=== PATIENT | female | born 1955 | race African-American/Black ===

== ENCOUNTER 2017-11-20 04:46 | Emergency (ER) | payer BC, SELFPAY ==
[2017-11-20] MEDS ORDERED: HYDROcodone/Acetaminophen 5/325 mg Tablet ONE (06:01)
[2017-11-20 06:38] LABS: #Basophils 0.1 thou/uL (0.0-0.2); #Eosinphils 0.1 thou/uL (0.0-0.7); #Lymphocytes 2.9 thou/uL (1.20-3.40); #Monocytes 0.7 thou/uL (0.11-0.59); #Neutrophils 3.6 thou/uL (1.40-6.50); %Basophils 0.8 % (0.0-1.0); %Eosinophils 1.5 % (0.0-10.0); %Lymphocytes 39.4 % (21.0-51.0); %Monocytes 9.2 % (0.0-10.0); %Neutrophils 49.1 % (42.0-75.0); Hemoglobin 13.1 g/dL (12.0-16.0); Mean Corpuscular HGB CONC 33.1 g/dL (32.0-36.0); Mean Corpuscular Hemoglobin 30.8 pg (27.0-31.0); Mean Platelet Volume 7.7 fL (7.4-10.4); Platelet Count 300 thou/uL (130-400); RBC Distribution Width 11.9 % (11.5-14.5); Red Blood Cell (RBC) Count 4.26 mill/uL (4.20-5.40); White Blood Cell (WBC) Count 7.3 thou/uL (4.8-10.8)
[2017-11-20 06:43] LABS: BHCG - Serum Negative (NEGATIVE); Pregs Control Bar Appear? YES (CONTROL BAR)
[2017-11-20 06:44] LABS: Pregs Control Background? CLEAR/WHITE (CLR/WHITE)
[2017-11-20 07:02] LABS: ALT (SGPT) 14 U/L (8-55); AST (SGOT) 16 U/L (5-34); Albumin 4.1 g/dL (3.4-4.8); Alkaline Phosphatase 91 U/L (40-150); Anion Gap 12 mmol/L (10-20); BUN (Urea Nitrogen) 10 mg/dL (9.8-20.1); Bilirubin, Total 0.8 mg/dL (0.2-1.2); Calc. Creatinine Clearance 0 mL/min (70-130); Calcium 10.1 mg/dL (7.8-10.44); Carbon Dioxide 27 mmol/L (23-31); Chloride 105 mmol/L (98-107); Estimated GFR-MDRD Greater than 90; Globulin 4.1 g/dL (2.4-3.5); Glucose 154 mg/dL (80-115); Potassium 4.3 mmol/L (3.5-5.1); Protein, Total 8.2 g/dL (6.0-8.3); Sodium 140 mmol/L (136-145)
[2017-11-20] MEDS ORDERED: Ondansetron HCl/PF 4 MG/2 ML Vial ONE (07:43)
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
--- NOTE | 2017-11-20 08:26 | RAD ---
THREE VIEWS LEFT WRIST: Date: 11-20-17 Comparison: None. History: Pain. FINDINGS: No displaced fracture or dislocation. No radiopaque foreign body or subcutaneous gas. IMPRESSION: No displaced fracture or evidence of dislocation. If symptoms persist, follow up imaging in 7-10 days with dedicated scaphoid views advised. POS: [facility]
[2017-11-20] MEDS ORDERED: ISOVUE-370 76%-LOCM 1 ML ONE (12:57)
== END 2017-11-20 10:44 | disposition home or self-care (01) ==
LOC: ERS 04:46
DX: T14.8XXA Other injury of unspecified body region, initial encounter (principal); I10 Essential (primary) hypertension; E78.5 Hyperlipidemia, unspecified; E11.9 Type 2 diabetes mellitus without complications; Y04.0XXA Assault by unarmed brawl or fight, initial encounter; Z79.84 Long term (current) use of oral hypoglycemic drugs; Z79.899 Other long term (current) drug therapy
CPT/HCPCS: 36415; 70450; 70498; 71046; 80053; 84703; 85025; 96374; J2405

== ENCOUNTER 2017-11-30 18:34 | Emergency (ER) | payer BC ==
[~2017-11-30 18:34] MED LIST: ISOVUE-370 76%-LOCM 1 ML ONE
[2017-11-30 19:16] LABS: #Basophils 0.1 thou/uL (0.0-0.2); #Eosinphils 0.1 thou/uL (0.0-0.7); #Lymphocytes 3.7 thou/uL (1.20-3.40); #Monocytes 0.7 thou/uL (0.11-0.59); #Neutrophils 3.9 thou/uL (1.40-6.50); %Basophils 0.7 % (0.0-1.0); %Eosinophils 1.5 % (0.0-10.0); %Lymphocytes 43.2 % (21.0-51.0); %Monocytes 8.7 % (0.0-10.0); %Neutrophils 45.9 % (42.0-75.0); Hemoglobin 13.1 g/dL (12.0-16.0); Mean Corpuscular HGB CONC 33.8 g/dL (32.0-36.0); Mean Corpuscular Hemoglobin 31.9 pg (27.0-31.0); Mean Corpuscular Volume 94.4 fl (81.0-99.0); Mean Platelet Volume 7.8 fL (7.4-10.4); Platelet Count 327 thou/uL (130-400); RBC Distribution Width 11.9 % (11.5-14.5); Red Blood Cell (RBC) Count 4.11 mill/uL (4.20-5.40); White Blood Cell (WBC) Count 8.6 thou/uL (4.8-10.8)
[2017-11-30 19:25] LABS: INR-International Normal Ratio 1.1; PTT 26.6 SEC (22.9-36.1); Prothrombin Time 14.1 SEC (12.0-14.7)
[2017-11-30] MEDS ORDERED: Ondansetron HCl/PF 4 MG/2 ML Vial ONE (19:28)
[2017-11-30] MEDS ORDERED: Fentanyl 100 MCG/2 ML VIAL ONE (19:28)
[2017-11-30 19:29] LABS: ALT (SGPT) 20 U/L (8-55); AST (SGOT) 22 U/L (5-34); Albumin 4.3 g/dL (3.4-4.8); Alkaline Phosphatase 90 U/L (40-150); Anion Gap 13 mmol/L (10-20); BUN (Urea Nitrogen) 10 mg/dL (9.8-20.1); Calc. Creatinine Clearance 0 mL/min (70-130); Calcium 10.2 mg/dL (7.8-10.44); Carbon Dioxide 25 mmol/L (23-31); Chloride 105 mmol/L (98-107); Estimated GFR-MDRD 85; Globulin 3.4 g/dL (2.4-3.5); Glucose 146 mg/dL (80-115); Lipase 20 U/L (8-78); Protein, Total 7.7 g/dL (6.0-8.3); Sodium 139 mmol/L (136-145)
[2017-11-30 19:38] LABS: CKMB 3.7 ng/mL (0-6.6); Troponin I Less than 0.010 ng/mL (< 0.028)
[2017-11-30 20:10] LABS: Bilirubin Negative (Negative); Blood, Urine Negative (Negative); Clarity CLOUDY (Clear); Glucose, Urine (Dipstick) Negative (Negative); Leukocyte Moderate (Negative); Nitrite Negative (Negative); Protein, Urine (Dipstick) Negative (Neg-Trace); Specific Gravity, Urine 1.028 (1.002-1.036); pH, Urine 5.5 (5.0-9.0)
[2017-11-30 20:12] LABS: Hyaline Casts/LPF 4-6 HYALINE CAST LPF (0-3 Hyaline); Pathc Cast-AUWi Flag 0.13 (0-2.49); WBC/HPF 21-50 HPF (0-3)
[2017-11-30 20:22] LABS: Bacteria/HPF 1+ HPF (None Seen); Crystals/HPF 1+ CA OXALATE HPF (Negative); RBC/HPF 0-3 HPF (0-3)
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
--- NOTE | 2017-11-30 21:04 | RAD ---
PORTABLE CHEST: History: Chest pain. Comparison: None. FINDINGS: Heart size and mediastinum are within normal limits. The lungs are clear of infiltrates. IMPRESSION: No active intrathoracic disease. POS: [facility]
== END 2017-11-30 21:29 | disposition home or self-care (01) ==
LOC: ERS 18:34
DX: R10.13 Epigastric pain (principal); I10 Essential (primary) hypertension; E78.5 Hyperlipidemia, unspecified; E11.9 Type 2 diabetes mellitus without complications; F41.9 Anxiety disorder, unspecified
CPT/HCPCS: 71045; 74177; 80053; 81003; 81015; 82150; 82274; 82550; 82553; 83605; 83630; 83690; 84484; 85025; 85610; 85730; 87045; 87046; 87086; 87324; 87328; 87329; 87449; 87899; 93005; 96361; 96372; 96374; 96375; J2405; J3010

== ENCOUNTER 2018-06-13 19:59 | Emergency (ER) | payer BC | END 2018-06-13 20:40 | disposition home or self-care (01) | LOC: ERS 19:59 | DX: I88.9 Nonspecific lymphadenitis, unspecified (principal); E78.5 Hyperlipidemia, unspecified; I10 Essential (primary) hypertension; E11.9 Type 2 diabetes mellitus without complications; Z79.899 Other long term (current) drug therapy; Z79.84 Long term (current) use of oral hypoglycemic drugs | CPT/HCPCS: 99282 ==

== ENCOUNTER 2018-06-24 14:17 | Observation (INO) | payer BC ==
[2018-06-24 14:49] LABS: Hemoglobin 14.3 g/dL (12.0-16.0); Mean Corpuscular Hemoglobin 31.5 pg (27.0-31.0); Mean Corpuscular Volume 92.5 fL (78.0-98.0); Mean Platelet Volume 8.5 fL (7.4-10.4); Platelet Count 342 thou/uL (130-400); RBC Distribution Width 11.9 % (11.5-14.5); Red Blood Cell (RBC) Count 4.55 mill/uL (4.20-5.40); White Blood Cell (WBC) Count 7.2 thou/uL (4.8-10.8)
--- NOTE | 2018-06-24 14:55 | RAD ---
SINGLE VIEW OF THE CHEST: Comparison: 11-30-17 History: Light headedness and heart racing. FINDINGS: Single view of the chest shows a normal sized cardiomediastinal silhouette. There is no evidence of c onsolidation, mass, or pleural effusion. The bones are unremarkable. IMPRESSION: No evidence of acute cardiopulmonary disease. POS: [facility]
[2018-06-24 15:04] LABS: ALT (SGPT) 11 U/L (8-55); AST (SGOT) 13 U/L (5-34); Albumin 4.6 g/dL (3.4-4.8); Alkaline Phosphatase 98 U/L (40-150); Anion Gap 11 mmol/L (10-20); BUN (Urea Nitrogen) 12 mg/dL (9.8-20.1); Bilirubin, Total 0.6 mg/dL (0.2-1.2); CK (CPK) 96 U/L (29-168); Calc. Creatinine Clearance 0 mL/min (70-130); Calcium 10.5 mg/dL (7.8-10.44); Carbon Dioxide 27 mmol/L (23-31); Chloride 104 mmol/L (98-107); Estimated GFR-MDRD 71; Globulin 4.3 g/dL (2.4-3.5); Glucose 122 mg/dL (80-115); Lipase 18 U/L (8-78); Potassium 3.6 mmol/L (3.5-5.1); Protein, Total 8.9 g/dL (6.0-8.3); Sodium 138 mmol/L (136-145)
[2018-06-24 15:08] LABS: CKMB 0.9 ng/mL (0-6.6); Troponin I Less than 0.010 ng/mL (< 0.028)
[2018-06-24 15:10] LABS: Eosinophils 2 % (0-10); Lymphocytes 56 % (21-51); MDiff Complete? YES; Monocytes 9 % (0-10); Neutrophil 26 % (42-75); PLT Morphology Comment Appears Adequate; RBC Morphology Normal; Reactive Lymphocytes 7 % (0-10)
[2018-06-24] MEDS ORDERED: Acetaminophen 325 MG TAB PO PRN (18:51)
[2018-06-24] MEDS ORDERED: Acetaminophen 650 MG Suppository PR PRN (18:51)
[2018-06-24] MEDS ORDERED: Nitroglycerin 0.4 MG TAB (25 Tab Bottle) PO PRN (18:51)
[2018-06-24] MEDS ORDERED: Dextrose 5% in Water 1,000 ML IV PRN (18:54)
[2018-06-24] MEDS ORDERED: HumaLOG 300 UNITS/3 ML VIAL SC PRN (18:54)
[2018-06-24] MEDS ORDERED: Dextrose 50% Abboject 50 ML SYRINGE SLOW IVP PRN (18:54)
--- NOTE | 2018-06-24 19:17 | HP ---
PRIMARY CARE PROVIDER: Eric Theodore MD CHIEF COMPLAINT: Palpitations and chest pressure. HISTORY OF PRESENT ILLNESS: Ms. Rowley is a pleasant 62-year-old lady, who was seen at [facility] on 06/24/2018. She reports that around 1:30 p.m. today, she was started having palpitations. The palpitations were accompanied by retrosternal chest pressure like sensation, 8/10, also accompanied by pressure in the neck. She reports feeling lightheaded. The palpitations lasted 5-10 minutes. She also reports naus ea. She denies any previous episodes of recent palpitations, but also says that she has had palpitat ions in the past, but not as severe. She denies any fevers or chills. REVIEW OF SYSTEMS: All other systems reviewed and found to be negative. PAST MEDICAL HISTORY: Hypertension, dyslipidemia, and diabetes mellitus, type 2. PAST SURGICAL HISTORY: Tubal ligation. PSYCHIATRIC HISTORY: Anxiety. SOCIAL HISTORY: The patient denies tobacco use, alcohol use, or recreational drug use. ALLERGIES: NAPROXEN and TRAMADOL. CURRENT MEDICATIONS: Metformin 500 mg 2 times a day, lisinopril 2.5 mg daily, and atorvastatin 10 mg daily. FAMILY HISTORY: Significant for atrial fibrillation in her mother and enlarged heart in her brother. PHYSICAL EXAMINATION: GENERAL: Ms. Rowley is awake and alert, not in acute distress. VITAL SIGNS: Blood pressure is 132/77, pulse 74, respiratory rate 17, and oxygen saturation 100% on room air. She is afebrile. EYES: No scleral icterus. No conjunctival pallor. ENT: Moist mucosal membranes, no oropharyngeal erythema or exudates. NECK: Supple, nontender. Trachea is midline. RESPIRATORY: Accessory muscles of breathing are not active. Chest wall movements are symmetric bila terally. LUNGS: Clear to auscultation without wheeze, rhonchi, or crepitations. CARDIOVASCULAR: S1 and S2 are heard, regular. Peripheral pulses palpable. No carotid bruits, no pe ricardial rub. ABDOMEN: Soft, nontender, bowel sounds are heard, no hepatomegaly, no splenomegaly. NEUROLOGIC: Cranial nerves II-XII intact. Deep tendon reflexes 2+. MUSCULOSKELETAL: Power is 5/5 in all 4 extremities. SKIN: No rashes or subcutaneous nodules. LYMPHATIC: No cervical lymphadenopathy. PSYCHIATRIC: Normal mood, normal affect, patient is oriented to person, place, and time. DATABASE: Ms. Rowley' labs and investigations were reviewed. I reviewed her electrocardiogram, wh ich shows normal sinus rhythm, no ST changes to suggest an acute coronary syndrome. I also reviewed her chest x-ray, which does not show any pulmonary infiltrates. She has a normal white count, but ly mphocytosis with 56% lymphocytes, and 26% neutrophils, normal hemoglobin, normal platelet count, mild ly elevated calcium of 10.5, elevated serum total protein of 8.9, elevated globulin of 4.3, normal al bumin, normal troponin I, normal creatinine, and normal electrolytes. ASSESSMENT AND PLAN: Ms. Rowley is a pleasant 62-year-old lady, who was seen at [facility] on 06/24/2018. Her problem list includes: 1. Chest pain: The etiology is unclear. Mr. Rowley will be admitted to the hospital for further management including telemetry monitoring, rechecking cardiac enzymes, and stress test. Further catina gement depending on outcome of this test. We will also order D-dimer to rule out pulmonary embolism. 2. Hypercalcemia, mild, we will recheck calcium level. 3. Lymphocytosis: Etiology is unclear. Will recheck CBC in the morning. 4. Diabetes mellitus, type 2: Start Accu-Cheks, insulin sliding scale. 5. Hypertension: Monitor vital signs, titrate antihypertensives as needed. 6. Elevated total protein and globulin: If these continue to be elevated on repeat check, the patie nt may need further workup to rule out entities such as multiple myeloma, especially given her elevat ed calcium level. This can be done as outpatient. 7. Palpitations: The patient will be monitored on telemetry to rule out any arrhythmias. Many thanks for allowing me to participate in your patient's care. Please feel free to contact me wi th any questions or concerns. LEVEL OF RISK: High. LEVEL OF COMPLEXITY: High.
[2018-06-24 19:55] LABS: Troponin I Less than 0.010 ng/mL (< 0.028)
[2018-06-24 20:55] VITALS: BMI 23.6
[2018-06-24 21:20] LABS: Troponin I Less than 0.010 ng/mL (< 0.028)
[2018-06-25 05:04] LABS: ALT (SGPT) 9 U/L (8-55); AST (SGOT) 10 U/L (5-34); Albumin 3.7 g/dL (3.4-4.8); Alkaline Phosphatase 80 U/L (40-150); Anion Gap 10 mmol/L (10-20); BUN (Urea Nitrogen) 12 mg/dL (9.8-20.1); Bilirubin, Total 0.9 mg/dL (0.2-1.2); Calc. Creatinine Clearance 67 mL/min (70-130); Calcium 9.8 mg/dL (7.8-10.44); Carbon Dioxide 28 mmol/L (23-31); Chloride 105 mmol/L (98-107); Estimated GFR-MDRD 72; Globulin 3.5 g/dL (2.4-3.5); Glucose 180 mg/dL (80-115); Potassium 4.1 mmol/L (3.5-5.1); Protein, Total 7.2 g/dL (6.0-8.3); Sodium 139 mmol/L (136-145)
[2018-06-25 05:45] LABS: #Eosinphils 0.3 thou/uL (0.0-0.7); #Lymphocytes 3.3 thou/uL (1.20-3.40); #Monocytes 0.7 thou/uL (0.11-0.59); #Neutrophils 2.6 thou/uL (1.40-6.50); %Basophils 0.7 % (0.0-1.0); %Eosinophils 4.3 % (0.0-10.0); %Lymphocytes 47.7 % (21.0-51.0); %Monocytes 10.2 % (0.0-10.0); %Neutrophils 37.1 % (42.0-75.0); Band 2 % (5-11); Eosinophils 4 % (0-10); Hemoglobin 13.1 g/dL (12.0-16.0); Lymphocytes 54 % (21-51); MDiff Complete? YES; Mean Corpuscular HGB CONC 33.4 g/dL (32.0-36.0); Mean Corpuscular Hemoglobin 30.6 pg (27.0-31.0); Mean Corpuscular Volume 91.8 fL (78.0-98.0); Mean Platelet Volume 8.2 fL (7.4-10.4); Monocytes 10 % (0-10); Neutrophil 30 % (42-75); PLT Morphology Comment Appears Adequate; Platelet Count 276 thou/uL (130-400); RBC Distribution Width 11.7 % (11.5-14.5); Red Blood Cell (RBC) Count 4.26 mill/uL (4.20-5.40); White Blood Cell (WBC) Count 6.9 thou/uL (4.8-10.8)
[2018-06-25] MEDS ORDERED: Enoxaparin Sodium 40 MG/0.4 ML SYRINGE SC SCH (09:00)
[2018-06-25 09:32] VITALS: BP 137/74; TEMP 98.2
--- NOTE | 2018-06-25 12:02 | PDOC.PN ---
- Subjective Encounter Start Date: 06/25/18 Encounter Start Time: 09:30 Subjective: no chest pain or palpitations -: feels better - Objective MAR Reviewed: Yes Vital Signs & Weight: Vital Signs (12 hours) Temp Pulse Resp BP BP Pulse Ox 06/25/18 08:27 96 06/25/18 08:00 98.2 F 68 18 137/74 06/25/18 04:04 98.4 F 70 20 111/69 98 Weight Weight 150 lb 9.6 oz I&O: 06/24/18 06/25/18 06/26/18 06:59 06:59 06:59 Intake Total 485 Output Total 200 Balance 285 Result Diagrams: 06/25/18 04:25 06/25/18 04:25 Phys Exam - Physical Examination HEENT: PERRLA, moist MMs Neck: no JVD, supple Respiratory: no wheezing, no rales Cardiovascular: RRR, no significant murmur Gastrointestinal: soft, non-tender, positive bowel sounds Musculoskeletal: no edema, pulses present Neurological: non-focal, moves all 4 limbs Psychiatric: normal affect, A&O x 3 Dx/Plan (1) Chest pain Code(s): R07.9 - CHEST PAIN, UNSPECIFIED Status: Acute (2) Palpitations Code(s): R00.2 - PALPITATIONS Status: Acute Comment: no arrhythmias on tele monitor (3) DM type 2 (diabetes mellitus, type 2) Status: Chronic Qualifiers: Diabetes mellitus emergency medical service manager insulin use: without detention use Diabetes mellitus complication status: with unspecified complications Qualified Code(s) : E11.8 - Type 2 diabetes mellitus with unspecified complications (4) HTN (hypertension) Code(s): I10 - ESSENTIAL (PRIMARY) HYPERTENSION Status: Chronic Qualifiers: Hypertension type: essential hypertension Qualified Code(s): I10 - Essential (primary) hypertension (5) Dyslipidemia Code(s): E78.5 - HYPERLIPIDEMIA, UNSPECIFIED Status: Chronic - Plan hemostable -: await stress test results, may dc home if -ve * . Review of Systems - Medications/Allergies Allergies/Adverse Reactions: Allergies Allergy/AdvReac Type Severity Reaction Status Date / Time naproxen Allergy Verified 06/24/18 18:50 tramadol Allergy Verified 06/24/18 18:50 Medications: Current Medications Acetaminophen (Tylenol) 650 mg PO Q4H PRN PRN Reason: Headache/Fever or Pain Last Admin: 06/24/18 21:12 Dose: 650 mg Acetaminophen (Tylenol) 650 mg CO Q4H PRN PRN Reason: Headache/Fever or Pain Dextrose/Water (Dextrose 50%) 25 gm SLOW IVP PRN PRN PRN Reason: Hypoglycemia Enoxaparin Sodium (Lovenox) 40 mg SC 0900 NILE Glucagon (Glucagon) 1 mg IM PRN PRN PRN Reason: Hypoglycemia Dextrose/Water (D5w) 1,000 mls @ 0 mls/hr IV .Q0M PRN PRN Reason: Hypoglycemia Insulin Human Lispro (Humalog) 0 units SC .MILD SLIDING SCALE PRN PRN Reason: Mild Correctional Scale Nitroglycerin (Nitrostat) 0.4 mg PO Q5MIN PRN PRN Reason: Chest Pain
[2018-06-25] MEDS ORDERED: ADENOSINE 60 MG/20 ML VIAL ONE (13:49)
--- NOTE | 2018-06-25 16:09 | NM ---
EXAM: NUCLEAR MEDICINE CARDIAC STRESS WITH EF AND WALL MOTION: 06/25/18 HISTORY: Chest pain. COMPARISON: None. TECHNIQUE: 10.7 millicuries of technetium 99m Sestamibi for rest imaging and 29 millicuries of technetium 99m Se stamibi for stress imaging. Cardiac gating is performed. FINDINGS: Homogeneous distribution of the radiotracer. Decreased radiotracer localization in the septum is felt to be artifactual. No reversibility. End diastolic volume is 58 mL. End systolic volume is 11 mL. TID = 1.2. CARDIAC GATING: Normal motion and thickening. 81% ejection fraction. IMPRESSION: 1. 81% ejection fraction. 2. No evidence of reversibility. 3. TID at the upper limits of normal. POS: [facility]
--- NOTE | 2018-06-26 01:31 | DIS ---
DATE OF ADMISSION: 06/24/2018 DATE OF DISCHARGE: 06/25/2018 DISCHARGE DISPOSITION: To home. PRIMARY DISCHARGE DIAGNOSIS: Chest pain with palpitations, resolved. SECONDARY DISCHARGE DIAGNOSES: Diabetes mellitus type 2, hypertension, dyslipidemia. PROCEDURES DONE DURING HOSPITALIZATION: Nuclear stress test done showed ejection fraction of 81%, no reversible ischemia was seen. TID was 1.2. End-diastolic volume was 58. Chest x-ray done showed n o acute cardiopulmonary abnormalities. H&H 13 and 39, platelet count is 276. Troponin x3 is negativ e. Serum calcium was 9.8, albumin was 3.7. DISCHARGE MEDICATIONS: Lipitor 40 mg p.o. daily, Neurontin 100 mg p.o. 3 times daily, lisinopril 2.5 mg p.o. daily, metformin 1000 mg p.o. q.a.m. and 500 mg p.o. at bedtime. ALLERGIES: NAPROSYN and TRAMADOL. DISCHARGE PLAN: The patient to follow up with primary care physician in 1 week. BRIEF COURSE DURING HOSPITALIZATION: The patient initially came in with complaints of palpitations a nd chest pressure. She was placed under observation on telemetry. She has had 3 sets of cardiac enz ymes, which are negative. Nuclear stress test done showed no reversible ischemia. Tele monitor has not revealed any arrhythmias. The patient initially had elevated calcium of 10.5 with albumin of 4.6 on admission. After gentle hydration, the patient's calcium was 9.8. Her albumin is 3.7, globulin is 3.5. She has remained hemodynamically stable and has been advised to follow up with her primary c are physician in 1 week. She probably needs close monitoring of her calcium levels and possible furt her workup as outpatient if it continues to increase. Please see a [id number] documentation on [employer] for the day of discharge.
--- NOTE | 2018-06-27 21:46 | EKG ---
Test Reason : PALPITATIONS Blood Pressure : / mmHG Vent. Rate : 089 BPM Atrial Rate : 089 BPM P-R Int : 166 ms QRS Dur : 090 ms QT Int : 372 ms P-R-T Axes : 080 -16 033 degrees QTc Int : 452 ms Normal sinus rhythm Possible Left atrial enlargement Possible Anteroseptal infarct , age undetermined Abnormal ECG Confirmed by SHELBY Long, LUIS A ([id number]), graphic editor ANDRÉS HER ([id number]) on 06/27/2018 9:46:31 PM Referred By: Confirmed By:LUIS A RYAN M.D.
== END 2018-06-25 18:24 | disposition home or self-care (01) ==
LOC: ERS 14:17 → 2SW 18:54
PROVIDERS: ADMIT Internal Medicine; ATTEND Internal Medicine
DX: R07.9 Chest pain, unspecified (principal); E83.52 Hypercalcemia; D72.820 Lymphocytosis (symptomatic); E11.9 Type 2 diabetes mellitus without complications; I10 Essential (primary) hypertension; R00.2 Palpitations; Z79.84 Long term (current) use of oral hypoglycemic drugs; Z79.899 Other long term (current) drug therapy; Z88.5 Allergy status to narcotic agent
CPT/HCPCS: 36415; 71045; 78452; 80053; 82550; 82553; 83690; 84484; 85025; 93005; 93017; 94760; A9500; G0378; J0153

== ENCOUNTER 2019-03-12 19:57 | Observation (INO) | payer BC ==
[2019-03-12] MEDS ORDERED: Metoclopramide HCl 10 MG/2 ML VIAL ONE (20:45)
[2019-03-12] MEDS ORDERED: diphenhydrAMINE 50 MG/ML VIAL ONE (20:45)
[2019-03-12 20:47] LABS: #Basophils 0.1 thou/uL (0.0-0.2); #Eosinphils 0.3 thou/uL (0.0-0.7); #Monocytes 0.6 thou/uL (0.11-0.59); #Neutrophils 3.7 thou/uL (1.40-6.50); %Basophils 1.1 % (0.0-1.0); %Eosinophils 3.1 % (0.0-10.0); %Lymphocytes 46.2 % (21.0-51.0); %Monocytes 6.5 % (0.0-10.0); %Neutrophils 43.1 % (42.0-75.0); Hemoglobin 13.4 g/dL (12.0-16.0); Mean Corpuscular HGB CONC 33.8 g/dL (32.0-36.0); Mean Corpuscular Hemoglobin 30.8 pg (27.0-31.0); Mean Corpuscular Volume 91.2 fL (78.0-98.0); Mean Platelet Volume 8.7 fL (7.4-10.4); Platelet Count 287 thou/uL (130-400); RBC Distribution Width 11.6 % (11.5-14.5); Red Blood Cell (RBC) Count 4.34 mill/uL (4.20-5.40); White Blood Cell (WBC) Count 8.7 thou/uL (4.8-10.8)
--- NOTE | 2019-03-12 20:51 | RAD ---
AP view chest. HISTORY: Left-sided rib pain. AP view chest obtained. The lungs are well aerated. No evidence of active intrathoracic disease seen. No evidence of effusions, pneumonia or pneumothorax seen. IMPRESSION: unremarkable AP view chest.
--- NOTE | 2019-03-12 20:57 | CT ---
CT brain. HISTORY: 63-year-old with history of headache. Noncontrast enhanced CT images of brain obtained. The brain is unremarkable. No evidence of intracranial masses, hemorrhages strokes or contusion seen. IMPRESSION: Unremarkable CT brain.
[2019-03-12 21:09] LABS: ALT (SGPT) 9 U/L (8-55); AST (SGOT) 10 U/L (5-34); Albumin 4.2 g/dL (3.4-4.8); Alkaline Phosphatase 101 U/L (40-150); Anion Gap 15 mmol/L (10-20); BUN (Urea Nitrogen) 11 mg/dL (9.8-20.1); Bilirubin, Total 0.6 mg/dL (0.2-1.2); CK (CPK) 79 U/L (29-168); Calc. Creatinine Clearance 0 mL/min (70-130); Calcium 10.2 mg/dL (7.8-10.44); Carbon Dioxide 26 mmol/L (23-31); Chloride 104 mmol/L (98-107); Estimated GFR-MDRD 71; Globulin 3.6 g/dL (2.4-3.5); Glucose 168 mg/dL (80-115); Potassium 3.6 mmol/L (3.5-5.1); Protein, Total 7.8 g/dL (6.0-8.3); Sodium 141 mmol/L (136-145)
[2019-03-12 21:29] LABS: Bilirubin Negative (Negative); Blood, Urine Negative (Negative); Clarity CLEAR (Clear); Glucose, Urine (Dipstick) Negative (Negative); Leukocyte Trace (Negative); Nitrite Negative (Negative); Protein, Urine (Dipstick) Negative (Neg-Trace); Specific Gravity, Urine 1.021 (1.002-1.036); pH, Urine 5.5 (5.0-9.0)
[2019-03-12 21:31] LABS: Bacteria/HPF None Seen HPF (None Seen); Hyaline Casts/LPF 0-3 HYALINE CAST LPF (0-3 Hyaline); Pathc Cast-AUWi Flag 0.67 (0-2.49); Squamous Epithelial 0-3 HPF (0-3); WBC/HPF 0-3 HPF (0-3)
[2019-03-12] MEDS ORDERED: Magnesium 2 GM/50 ML BAG (IN WATER) ONE (21:50)
[2019-03-12] MEDS ORDERED: Aspirin Chewable 81 MG TAB ONE (21:50)
[2019-03-12] MEDS ORDERED: Acetaminophen 500 MG TAB ONE (21:50)
[2019-03-12] MEDS ORDERED: valACYclovir 500 MG TAB PO SCH (22:00)
[2019-03-12] MEDS ORDERED: Ondansetron PF 4 MG/2 ML Vial IVP PRN (22:45)
[2019-03-12] MEDS ORDERED: Ondansetron ODT 4 MG TAB SL PRN (22:45)
[2019-03-12 22:47] VITALS: BMI 24.7
[2019-03-12] MEDS: Sodium Chloride 0.9% 1,000 ML IV SCH (23:27)
[2019-03-12] MEDS ORDERED: Acetaminophen 325 MG TAB PO PRN (23:38)
[2019-03-13 00:21] LABS: Troponin I Less than 0.010 ng/mL (< 0.028)
[2019-03-13] MEDS ORDERED: Dextrose 5% in Water 1,000 ML IV PRN (02:46)
[2019-03-13] MEDS ORDERED: Dextrose 50% Abboject 50 ML SYRINGE SLOW IVP PRN (02:46)
[2019-03-13] MEDS ORDERED: HumaLOG 300 UNITS/3 ML VIAL SC PRN (02:46)
[2019-03-13 03:20] LABS: Troponin I Less than 0.010 ng/mL (< 0.028)
--- NOTE | 2019-03-13 03:42 | HP ---
PRIMARY CARE DOCTOR: Antolin Theodore MD. CODE STATUS: Full code. TIME OF EVALUATION: 10:10 p.m. CHIEF COMPLAINT: Headache and chest pain. HISTORY OF PRESENT ILLNESS: A 63-year-old female patient, past medical history of hypertension, hyperlipidemia, diabetes, came to the hospital after having chest pain that was in the left side of the chest, on and off, [id number]. No clear triggers. No alleviating factors. It was associated with headache, symptoms started suddenly. REVIEW OF SYSTEMS: CONSTITUTIONAL: No fever, chills, or generalized weakness. RESPIRATORY: No cough, sputum production, or shortness of breath. CARDIOVASCULAR: The patient has chest pain. No palpitation. GASTROINTESTINAL: No nausea. No vomiting diarrhea or abdominal pain. DIRECTOR VIDEO: No dizziness. The patient has headache, feeling lightheaded. GENITOURINARY: No burning on urination. EXTREMITIES: No leg swelling. All other systems were reviewed and negative except for the findings mentioned above. PAST MEDICAL HISTORY: Positive for the findings mentioned in the HPI. PAST SURGICAL HISTORY: The patient has tubal ligation. PSYCHIATRIC HISTORY: Includes anxiety. SOCIAL HISTORY: No alcohol, no drugs, no smoking history. Lives at home with family. FAMILY HISTORY: Reviewed and no contributory to current presentation. KNOWN ALLERGIES: Naproxen and tramadol. REPORTED MEDICATIONS: 1. Metformin. 2. Lisinopril. 3. Atorvastatin. PHYSICAL EXAMINATION: VITAL SIGNS: On presentation, blood pressure 155/90, with heart rate 88, respiratory rate was 16, temperature 98.2, oxygen saturation 99% on room air. GENERAL APPEARANCE: The patient is alert, oriented, not in acute distress. HEENT: Eyes; normal conjunctivae. Moist oral mucosa. Anicteric. No JVD. RESPIRATORY: Bilateral air entry. No rales. No wheezes. Symmetric expansion. CARDIOVASCULAR: Normal rate, regular rhythm. No murmurs. No gallop. No edema. ABDOMEN: Soft. Normal bowel sounds. MUSCULOSKELETAL: Baseline range of motion and strength. SKIN: Warm and intact. No pallor. No rash. No redness except for the one little spot in the left lower chest that might be a pustular disease, small one. Peripheral pulses are present. Capillary refill seems to be intact. NEUROLOGIC: No evidence of any new focal weakness. Cranial nerves seems to be intact. PSYCHIATRIC: The patient is in good mood. No anxiety. Optimal judgment. DIAGNOSTIC STUDIES: 1. EKG was reviewed. The patient has sinus rhythm with frequent PVCs at the rate of 84, MN 182, QRS 88, QT corrected 458. 2. Chest x-ray was reviewed. The patient had a negative chest x-ray. 3. CT head was reviewed, the patient had negative CT. LABORATORY DATA: Reviewed the patient has a white count of 8.7, hemoglobin 13.4 , MCV 91.2, platelet count 287. D-dimer 0.29. Chemistry: Sodium 141, potassium 3.6, chloride 104, carbon dioxide 26, anion gap 15, BUN 11, creatinine 0.96, GFR 71, glucose 168, lactic acid 1.4. LFTs were negative. Urine was done, which was negative. ASSESSMENT AND PLAN: The patient will be placed in the hospital with the following medical problems: 1. Chest pain. Rule out acute coronary syndrome. The patient has significant risk factors including diabetes, hyperlipidemia. We will trend troponins, we will monitor on tele. If the workup is negative, we will go for a stress test in the morning. This was discussed with the patient. The patient is agreeable to take the test. 2. Uncontrolled diabetes, blood sugar of 168. We will place the patient on sliding scale for optimal control. 3. Hyperlipidemia. Low-cholesterol diet is advised. Reconcile home medications. 4. Uncontrolled blood pressure. The patient presented with systolic blood pressure as high as 160. Reconcile home medications. We will adjust treatment as needed. 5. Deep venous thrombosis prophylaxis. Job ID: [id number] MTDD
[2019-03-13 05:53] LABS: #Basophils 0.1 thou/uL (0.0-0.2); #Eosinphils 0.3 thou/uL (0.0-0.7); #Lymphocytes 3.3 thou/uL (1.20-3.40); #Monocytes 0.6 thou/uL (0.11-0.59); #Neutrophils 2.6 thou/uL (1.40-6.50); %Basophils 1.3 % (0.0-1.0); %Eosinophils 3.9 % (0.0-10.0); %Lymphocytes 48.2 % (21.0-51.0); %Monocytes 8.3 % (0.0-10.0); %Neutrophils 38.3 % (42.0-75.0); Hemoglobin 11.4 g/dL (12.0-16.0); Mean Corpuscular HGB CONC 34.5 g/dL (32.0-36.0); Mean Corpuscular Hemoglobin 31.4 pg (27.0-31.0); Mean Corpuscular Volume 91.1 fL (78.0-98.0); Mean Platelet Volume 8.9 fL (7.4-10.4); Platelet Count 247 thou/uL (130-400); RBC Distribution Width 11.7 % (11.5-14.5); Red Blood Cell (RBC) Count 3.63 mill/uL (4.20-5.40); White Blood Cell (WBC) Count 6.8 thou/uL (4.8-10.8)
[2019-03-13 06:15] LABS: Anion Gap 12 mmol/L (10-20); BUN (Urea Nitrogen) 11 mg/dL (9.8-20.1); Calc. Creatinine Clearance 78 mL/min (70-130); Calcium 8.7 mg/dL (7.8-10.44); Carbon Dioxide 22 mmol/L (23-31); Chloride 110 mmol/L (98-107); Estimated GFR-MDRD 82; Glucose 199 mg/dL (80-115); Potassium 3.7 mmol/L (3.5-5.1); Sodium 140 mmol/L (136-145)
[2019-03-13] MEDS ORDERED: Aspirin 325 MG TAB PO SCH (08:00)
[2019-03-13 08:01] VITALS: TEMP 97.6
[2019-03-13] MEDS ORDERED: Gabapentin 100 MG CAP PO SCH (09:00)
[2019-03-13] MEDS ORDERED: Atorvastatin Calcium 40 MG TAB PO SCH (09:00)
[2019-03-13] MEDS ORDERED: Lisinopril 2.5 MG TAB PO SCH (09:00)
[2019-03-13] MEDS ORDERED: valACYclovir 500 MG TAB PO SCH (09:00)
[2019-03-13] MEDS ORDERED: Enoxaparin Sodium 40 MG/0.4 ML SYRINGE SC SCH (09:00)
--- NOTE | 2019-03-13 11:31 | PDOC.EVN ---
Event Note - Event Note Event Note: DC SUMMARY #[id number]
[2019-03-13 12:18] VITALS: BP 132/76
[2019-03-13] MEDS: Sodium Chloride 0.9% 1,000 ML IV SCH (13:32)
[2019-03-13] MEDS ORDERED: metFORMIN 500 MG TAB PO SCH (21:00)
--- NOTE | 2019-03-13 22:45 | DIS ---
DATE OF ADMISSION: 03/12/2019 DATE OF DISCHARGE: 03/13/2019 ADMITTING DIAGNOSES: Chest pain, coronary artery disease, diabetes mellitus, and hypertension. DISCHARGE DIAGNOSES: Chest pain, resolved; coronary artery disease, stable; diabetes mellitus, stable; hypertension. HOSPITAL COURSE: This is a 63-year-old female admitted to Internal Medicine Team complaining of chest pain. The patient was admitted to Internal Medicine Team observation floor, had troponins done over the course of 16 hours, all of which were negative. The patient had a recent nuclear medicine stress test done as well back in June of 2018, which was normal. The patient at the point in time of discharge was stable. Denied any nausea, vomiting, diarrhea, constipation, chest pain, fevers, chills or shortness of breath. The patient was advised to follow up with her PCP within 1 week for further management and care. Case and plan discussed with patient at length. She understood and agreed to this plan. DISPOSITION: Home. FOLLOWUP: PCP within 1 to 2 weeks. MEDICATIONS: See MAR. ACTIVITY: As tolerated with assistance as needed. DIET: Low-fat, low-calorie, high-fiber diet. CONDITION: Stable. PROGNOSIS: Good. Once again, case and plan discussed with the patient at length. She understood and agreed with this plan. Job ID: [id number]
== END 2019-03-13 13:59 | disposition home or self-care (01) ==
LOC: ERS 19:57 → 2SW 22:34
PROVIDERS: ADMIT Hospitalist; ATTEND Hospitalist
DX: R07.9 Chest pain, unspecified (principal); I25.10 Atherosclerotic heart disease of native coronary artery without angina pectoris; E11.9 Type 2 diabetes mellitus without complications; E78.5 Hyperlipidemia, unspecified; F41.9 Anxiety disorder, unspecified; I10 Essential (primary) hypertension; Z79.84 Long term (current) use of oral hypoglycemic drugs; Z79.899 Other long term (current) drug therapy; Z88.5 Allergy status to narcotic agent; Z88.6 Allergy status to analgesic agent
CPT/HCPCS: 36415; 36416; 70450; 71045; 80048; 80053; 81003; 81015; 82550; 83605; 84484; 85025; 85379; 93005; 94760; 96365; 96367; 96372; 96375; G0378; J1200; J1650; J2765; J3475

== ENCOUNTER 2019-03-18 14:33 | Emergency (ER) | payer BC ==
[2019-03-18] MEDS ORDERED: Lidocaine 1% w/Epinephrine 1:100K 20 ML VIAL ONE (15:33)
== END 2019-03-18 15:53 | disposition home or self-care (01) ==
LOC: ERS 14:33
DX: N61.1 Abscess of the breast and nipple (principal); I10 Essential (primary) hypertension; E11.9 Type 2 diabetes mellitus without complications; F41.9 Anxiety disorder, unspecified; E78.5 Hyperlipidemia, unspecified
CPT/HCPCS: 10060; J2001

== ENCOUNTER 2019-07-09 13:47 | Emergency (ER) | payer BC ==
[2019-07-09 15:10] LABS: #Eosinphils 0.1 thou/uL (0.0-0.7); #Lymphocytes 2.2 thou/uL (1.20-3.40); #Monocytes 0.6 thou/uL (0.11-0.59); #Neutrophils 5.4 thou/uL (1.40-6.50); %Basophils 0.2 % (0.0-1.0); %Eosinophils 0.9 % (0.0-10.0); %Lymphocytes 26.6 % (21.0-51.0); %Monocytes 7.6 % (0.0-10.0); %Neutrophils 64.7 % (42.0-75.0); Hemoglobin 12.5 g/dL (12.0-16.0); Mean Corpuscular HGB CONC 34.7 g/dL (32.0-36.0); Mean Corpuscular Hemoglobin 31.6 pg (27.0-31.0); Mean Platelet Volume 8.3 fL (7.4-10.4); Platelet Count 316 thou/uL (130-400); RBC Distribution Width 11.6 % (11.5-14.5); Red Blood Cell (RBC) Count 3.96 mill/uL (4.20-5.40); White Blood Cell (WBC) Count 8.4 thou/uL (4.8-10.8)
--- NOTE | 2019-07-09 15:14 | RAD ---
EXAM: Portable chest PROVIDED CLINICAL HISTORY: Chest pain COMPARISON: 03/12/2019 FINDINGS: Cardiac and mediastinal silhouette is within normal limits. No focal consolidation, pleural fluid or pneumothorax evident. IMPRESSION: No evidence for an acute cardiopulmonary process.
[2019-07-09 15:31] LABS: ALT (SGPT) 12 U/L (8-55); AST (SGOT) 11 U/L (5-34); Alkaline Phosphatase 97 U/L (40-150); Anion Gap 10 mmol/L (10-20); BUN (Urea Nitrogen) 7 mg/dL (9.8-20.1); Bilirubin, Total 0.4 mg/dL (0.2-1.2); Calc. Creatinine Clearance 0 mL/min (70-130); Calcium 9.9 mg/dL (7.8-10.44); Carbon Dioxide 28 mmol/L (23-31); Chloride 104 mmol/L (98-107); Estimated GFR-MDRD 64; Globulin 3.1 g/dL (2.4-3.5); Glucose 224 mg/dL (80-115); Lipase 13 U/L (8-78); Protein, Total 7.1 g/dL (6.0-8.3); Sodium 138 mmol/L (136-145)
[2019-07-09 15:50] LABS: Bilirubin Negative (Negative); Blood, Urine Negative (Negative); Clarity Clear (Clear); Glucose, Urine (Dipstick) 300 mg/dL (Negative); Leukocyte Negative Leu/uL (Negative); Nitrite Negative (Negative); Protein, Urine (Dipstick) Negative (Neg-Trace); Urobilinogen Normal mg/dL (Less than 2)
== END 2019-07-09 17:12 | disposition home or self-care (01) ==
LOC: ERS 13:47
DX: R00.2 Palpitations (principal); E11.9 Type 2 diabetes mellitus without complications; I10 Essential (primary) hypertension; E78.5 Hyperlipidemia, unspecified; F41.9 Anxiety disorder, unspecified; Z79.899 Other long term (current) drug therapy; Z79.84 Long term (current) use of oral hypoglycemic drugs; Z79.82 Long term (current) use of aspirin
CPT/HCPCS: 36415; 36416; 71045; 80053; 81003; 83690; 84484; 85025; 93005

== ENCOUNTER 2022-03-24 20:29 | Emergency (ER) | payer MEDICARE, BC ==
[2022-03-24] MEDS ORDERED: predniSONE 20 MG TAB ONE ×2 (21:11→21:19)
== END 2022-03-24 22:05 | disposition home or self-care (01) ==
LOC: ERS 20:29
DX: S93.602A Unspecified sprain of left foot, initial encounter (principal); M02.372 Reiter's disease, left ankle and foot; I10 Essential (primary) hypertension; E78.5 Hyperlipidemia, unspecified; E11.9 Type 2 diabetes mellitus without complications; Z79.899 Other long term (current) drug therapy; X58.XXXA Exposure to other specified factors, initial encounter
CPT/HCPCS: J7512

== ENCOUNTER 2022-04-08 16:10 | Inpatient (IN) | payer MEDICARE, BC ==
[2022-04-08] MEDS ORDERED: methylPREDNISolone Sod Succ/PF 125 MG/2 ML VIAL ONE (16:20)
[2022-04-08] MEDS ORDERED: EPINEPHrine 1 MG/ML VIAL ONE (16:20)
[2022-04-08] MEDS ORDERED: Famotidine/PF 20 mg/2ml Vial ONE (16:31)
[2022-04-08] MEDS ORDERED: diphenhydrAMINE 50 MG/ML VIAL ONE (16:31)
[2022-04-08 16:41] LABS: #Basophils 0.1 thou/uL (0.0-0.2); #Eosinphils 0.1 thou/uL (0.0-0.7); #Lymphocytes 3.7 thou/uL (1.20-3.40); #Monocytes 0.6 thou/uL (0.11-0.59); #Neutrophils 4.6 thou/uL (1.40-6.50); %Basophils 0.9 % (0.0-1.0); %Eosinophils 0.7 % (0.0-10.0); %Lymphocytes 40.9 % (21.0-51.0); %Monocytes 6.8 % (0.0-10.0); %Neutrophils 50.7 % (42.0-75.0); Hemoglobin 12.6 g/dL (12.0-16.0); Mean Corpuscular HGB CONC 32.7 g/dL (32.0-36.0); Mean Corpuscular Hemoglobin 30.8 pg (27.0-31.0); Mean Platelet Volume 7.9 fL (7.4-10.4); Platelet Count 321 thou/uL (130-400); Red Blood Cell (RBC) Count 4.11 mill/uL (4.20-5.40); White Blood Cell (WBC) Count 9.1 thou/uL (4.8-10.8)
[2022-04-08] MEDS ORDERED: Tranexamic Acid 1,000 MG/10 ML VIAL ONE ×2 (16:59→17:02)
[2022-04-08 17:02] LABS: Anion Gap 12 mmol/L (10-20); BUN (Urea Nitrogen) 11 mg/dL (9.8-20.1); Bilirubin, Total 1.1 mg/dL (0.2-1.2); Calc. Creatinine Clearance 0 mL/min (70-130); Calcium 10.3 mg/dL (7.8-10.44); Carbon Dioxide 27 mmol/L (23-31); Chloride 104 mmol/L (98-107); Glucose 152 mg/dL (80-115); Potassium 4.1 mmol/L (3.5-5.1); Protein, Total 8.3 g/dL (5.8-8.1); Sodium 139 mmol/L (136-145)
[2022-04-08 17:03] LABS: ALT (SGPT) 13 U/L (8-55); AST (SGOT) 16 U/L (5-34); Albumin 4.3 g/dL (3.4-4.8); Alkaline Phosphatase 91 U/L (40-110)
[2022-04-08] MEDS ORDERED: Acetaminophen 325 MG TAB PO PRN (20:45)
[2022-04-08] MEDS ORDERED: HumaLOG 300 UNITS/3 ML VIAL SC PRN (20:45)
[2022-04-08] MEDS ORDERED: Dextrose 5% in Water 1,000 ML IV PRN (20:45)
[2022-04-08] MEDS ORDERED: Dextrose 50% Abboject 50 ML SYRINGE SLOW IVP PRN (20:45)
[2022-04-08] MEDS ORDERED: Acetaminophen 650 MG Suppository PR PRN (20:45)
[2022-04-08] MEDS ORDERED: Ondansetron PF 4 MG/2 ML Vial IVP PRN (20:45)
[2022-04-08] MEDS ORDERED: Ondansetron ODT 4 MG TAB SL PRN (20:45)
[2022-04-08] MEDS: HumaLOG 300 UNITS/3 ML VIAL SC PRN (21:02)
[2022-04-08] MEDS: Sodium Chloride 0.9% 1,000 ML IV SCH (21:03)
[2022-04-08 21:08] LABS: SARS-CoV-2 NAA Rapid Test Not Detected (NotDetected)
[2022-04-08 21:16] VITALS: BMI 22.8
[2022-04-09 04:10] LABS: #Lymphocytes 1.4 thou/uL (1.20-3.40); #Monocytes 0.1 thou/uL (0.11-0.59); #Neutrophils 8.2 thou/uL (1.40-6.50); %Basophils 0.1 % (0.0-1.0); %Eosinophils 0.1 % (0.0-10.0); %Lymphocytes 13.9 % (21.0-51.0); %Monocytes 1.3 % (0.0-10.0); %Neutrophils 84.7 % (42.0-75.0); Hemoglobin 11.1 g/dL (12.0-16.0); Mean Corpuscular Hemoglobin 31.3 pg (27.0-31.0); Mean Corpuscular Volume 94.8 fL (78.0-98.0); Mean Platelet Volume 7.7 fL (7.4-10.4); Platelet Count 316 thou/uL (130-400); RBC Distribution Width 12.2 % (11.5-14.5); Red Blood Cell (RBC) Count 3.55 mill/uL (4.20-5.40); White Blood Cell (WBC) Count 9.7 thou/uL (4.8-10.8)
[2022-04-09 04:16] LABS: Anion Gap 12 mmol/L (10-20); BUN (Urea Nitrogen) 13 mg/dL (9.8-20.1); Calc. Creatinine Clearance 70 mL/min (70-130); Calcium 9.9 mg/dL (7.8-10.44); Carbon Dioxide 24 mmol/L (23-31); Chloride 109 mmol/L (98-107); Glucose 225 mg/dL (80-115); Potassium 4.4 mmol/L (3.5-5.1); Sodium 141 mmol/L (136-145)
[2022-04-09] MEDS: Sodium Chloride 0.9% 1,000 ML IV SCH (04:40)
[2022-04-09] MEDS ORDERED: Insulin Regular 300 UNITS/3 ML VIAL SC PRN (06:55)
[2022-04-09] MEDS ORDERED: metFORMIN 500 MG TAB PO SCH (08:00)
[2022-04-09] MEDS ORDERED: Aspirin 81 mg Enteric Coated Tablet PO SCH (09:00)
[2022-04-09] MEDS ORDERED: Cetirizine HCl 10 MG TAB PO SCH (09:00)
[2022-04-09] MEDS ORDERED: predniSONE 20 MG TAB PO SCH (09:00)
[2022-04-09] MEDS ORDERED: Loratadine 10 MG TAB PO SCH (09:00)
[2022-04-09] MEDS ORDERED: Enoxaparin Sodium 40 MG/0.4 ML SYRINGE SC SCH (09:00)
[2022-04-09] MEDS: HumaLOG 300 UNITS/3 ML VIAL SC PRN (11:16)
[2022-04-09 12:17] VITALS: TEMP 98.3
[2022-04-09] MEDS ORDERED: Atorvastatin Calcium 40 MG TAB PO SCH (21:00)
== END 2022-04-09 16:09 | disposition home or self-care (01) | DRG 916 ==
LOC: ERS 16:10 → CCU 19:21
PROVIDERS: ADMIT Internal Medicine; ATTEND Internal Medicine
PROC: 30233K1 Transfusion of Nonautologous Frozen Plasma into Peripheral Vein, Percutaneous Approach (ICD-10-PCS; principal; 2022-04-08)
DX: T78.3XXA Angioneurotic edema, initial encounter (principal); Z20.822 Contact with and (suspected) exposure to COVID-19; I10 Essential (primary) hypertension; T46.5X5A Adverse effect of other antihypertensive drugs, initial encounter; E11.9 Type 2 diabetes mellitus without complications; E78.5 Hyperlipidemia, unspecified; F41.9 Anxiety disorder, unspecified; Z98.51 Tubal ligation status; Z88.6 Allergy status to analgesic agent; Z88.5 Allergy status to narcotic agent; Z88.8 Allergy status to other drugs, medicaments and biological substances; Z79.899 Other long term (current) drug therapy; Z79.84 Long term (current) use of oral hypoglycemic drugs; Z79.82 Long term (current) use of aspirin
CPT/HCPCS: 36415; 36416; 36430; 70360; 71045; 80048; 80053; 85025; 86850; 86900; 86901; 93005; J0171; J1200; J1650; J1815; J2930; J7050; J7512; P9059; S0028; U0002

== ENCOUNTER 2022-05-21 10:21 | Inpatient (IN) | payer MEDICARE, BC ==
[2022-05-21] MEDS ORDERED: methylPREDNISolone Sod Succ/PF 125 MG/2 ML VIAL ONE (10:47)
[2022-05-21] MEDS ORDERED: Famotidine/PF 20 mg/2ml Vial ONE (10:47)
[2022-05-21] MEDS ORDERED: diphenhydrAMINE 50 MG/ML VIAL ONE (10:47)
[2022-05-21] MEDS ORDERED: EPINEPHrine 1 MG/ML VIAL ONE (10:47)
[2022-05-21 11:31] LABS: #Eosinphils 0.2 thou/uL (0.0-0.7); #Lymphocytes 2.9 thou/uL (1.20-3.40); #Monocytes 0.6 thou/uL (0.11-0.59); #Neutrophils 3.2 thou/uL (1.40-6.50); %Basophils 0.5 % (0.0-1.0); %Eosinophils 2.3 % (0.0-10.0); %Lymphocytes 42.6 % (21.0-51.0); %Monocytes 8.3 % (0.0-10.0); %Neutrophils 46.3 % (42.0-75.0); Hemoglobin 12.5 g/dL (12.0-16.0); Mean Corpuscular HGB CONC 32.1 g/dL (32.0-36.0); Mean Corpuscular Hemoglobin 30.1 pg (27.0-31.0); Mean Corpuscular Volume 93.7 fL (78.0-98.0); Mean Platelet Volume 8.9 fL (7.4-10.4); Platelet Count 293 thou/uL (130-400); RBC Distribution Width 12.3 % (11.5-14.5); Red Blood Cell (RBC) Count 4.15 mill/uL (4.20-5.40); White Blood Cell (WBC) Count 6.8 thou/uL (4.8-10.8)
[2022-05-21 11:47] LABS: ALT (SGPT) 14 U/L (8-55); AST (SGOT) 20 U/L (5-34); Albumin 4.3 g/dL (3.4-4.8); Alkaline Phosphatase 104 U/L (40-110); Anion Gap 17 mmol/L (10-20); BUN (Urea Nitrogen) 10 mg/dL (9.8-20.1); Bilirubin, Total 0.5 mg/dL (0.2-1.2); Calc. Creatinine Clearance 0 mL/min (70-130); Calcium 10.3 mg/dL (7.8-10.44); Carbon Dioxide 23 mmol/L (23-31); Chloride 104 mmol/L (98-107); Estimated GFR 76; Glucose 233 mg/dL (80-115); Potassium 4.6 mmol/L (3.5-5.1); Protein, Total 8.3 g/dL (5.8-8.1); Sodium 139 mmol/L (136-145)
[2022-05-21] MEDS ORDERED: Dextrose 5% in Water 1,000 ML IV PRN (14:28)
[2022-05-21] MEDS ORDERED: HumaLOG 300 UNITS/3 ML VIAL SC PRN ×2 (14:28)
[2022-05-21] MEDS ORDERED: Dextrose 50% Abboject 50 ML SYRINGE SLOW IVP PRN (14:28)
[2022-05-21 15:01] VITALS: BMI 22.4
[2022-05-21] MEDS ORDERED: hydrALAZINE 20 MG/ML VIAL SLOW IVP PRN (17:45)
[2022-05-21] MEDS: metFORMIN 500 MG TAB PO SCH (18:02)
[2022-05-21] MEDS ORDERED: Atorvastatin Calcium 40 MG TAB PO SCH (21:00)
[2022-05-22 06:30] LABS: ALT (SGPT) 15 U/L (8-55); AST (SGOT) 13 U/L (5-34); Albumin 3.8 g/dL (3.4-4.8); Alkaline Phosphatase 88 U/L (40-110); Anion Gap 17 mmol/L (10-20); BUN (Urea Nitrogen) 14 mg/dL (9.8-20.1); Bilirubin, Total 0.6 mg/dL (0.2-1.2); Calc. Creatinine Clearance 60 mL/min (70-130); Calcium 10.4 mg/dL (7.8-10.44); Carbon Dioxide 24 mmol/L (23-31); Chloride 105 mmol/L (98-107); Estimated GFR 66; Globulin 3.6 g/dL (2.4-3.5); Glucose 230 mg/dL (80-115); Potassium 4.7 mmol/L (3.5-5.1); Protein, Total 7.4 g/dL (5.8-8.1); Sodium 141 mmol/L (136-145)
[2022-05-22 07:03] LABS: Band 8 % (5-11); Lymphocytes 13 % (21-51); MDiff Complete? YES; Mean Corpuscular HGB CONC 33.1 g/dL (32.0-36.0); Mean Corpuscular Hemoglobin 31.1 pg (27.0-31.0); Mean Corpuscular Volume 94.2 fL (78.0-98.0); Mean Platelet Volume 6.6 fL (7.4-10.4); Monocytes 4 % (0-10); Neutrophil 75 % (42-75); Platelet Count 321 thou/uL (130-400); RBC Distribution Width 12.3 % (11.5-14.5); Red Blood Cell (RBC) Count 4.18 mill/uL (4.20-5.40); White Blood Cell (WBC) Count 15.5 thou/uL (4.8-10.8)
[2022-05-22 07:28] VITALS: TEMP 98.3
[2022-05-22] MEDS: metFORMIN 500 MG TAB PO SCH (07:54)
[2022-05-22] MEDS ORDERED: predniSONE 20 MG TAB PO SCH (08:00)
[2022-05-22] MEDS ORDERED: Hydrochlorothiazide 25 MG TAB PO SCH (09:00)
[2022-05-22] MEDS ORDERED: Stress 600 With Zinc 1 TAB PO SCH (09:00)
[2022-05-22] MEDS ORDERED: Enoxaparin Sodium 40 MG/0.4 ML SYRINGE SC SCH (09:00)
[2022-05-22] MEDS ORDERED: Loratadine 10 MG TAB PO SCH (09:00)
[2022-05-22] MEDS ORDERED: Cholecalciferol 1,000 UNITS (25 MCG) TAB PO SCH (09:00)
[2022-05-23 12:56] LABS: ANA Symphony (Qualitative) Negative (Negative); ANA Symphony (Quantitative) 0.3 Ratio (< 0.7 Negative); dsDNA IgG Antibody Less than 0.5 IU/mL (<10 Negative)
== END 2022-05-22 11:18 | disposition home or self-care (01) | DRG 916 ==
LOC: ERS 10:21 → IMCU/EMU 13:01
PROVIDERS: ADMIT Student in an Organized Health Care Education/Training Program; ATTEND Student in an Organized Health Care Education/Training Program
DX: T78.3XXA Angioneurotic edema, initial encounter (principal); E11.9 Type 2 diabetes mellitus without complications; I10 Essential (primary) hypertension; E78.5 Hyperlipidemia, unspecified; Z20.822 Contact with and (suspected) exposure to COVID-19; Z88.8 Allergy status to other drugs, medicaments and biological substances; Z79.84 Long term (current) use of oral hypoglycemic drugs; Z79.82 Long term (current) use of aspirin; Z79.899 Other long term (current) drug therapy; Z98.51 Tubal ligation status
CPT/HCPCS: 36415; 36416; 71045; 80053; 84443; 84484; 85025; 85652; 86038; 86141; 86160; 86161; 86225; 93005; 96372; 96374; 96375; J0171; J1200; J1650; J2930; J7512; S0028; U0003; U0005

== ENCOUNTER 2022-05-28 12:06 | Observation (INO) | payer MEDICARE, BC ==
[2022-05-28 12:36] LABS: Hemoglobin 13.5 g/dL (12.0-16.0); Mean Corpuscular HGB CONC 32.6 g/dL (32.0-36.0); Mean Corpuscular Hemoglobin 30.3 pg (27.0-31.0); Mean Corpuscular Volume 92.8 fL (78.0-98.0); Mean Platelet Volume 7.9 fL (7.4-10.4); Platelet Count 315 thou/uL (130-400); RBC Distribution Width 12.2 % (11.5-14.5); Red Blood Cell (RBC) Count 4.44 mill/uL (4.20-5.40); White Blood Cell (WBC) Count 9.2 thou/uL (4.8-10.8)
[2022-05-28 12:54] LABS: Eosinophils 1 % (0-10); Lymphocytes 40 % (21-51); MDiff Complete? YES; Monocytes 8 % (0-10); Neutrophil 40 % (42-75); RBC Morphology Normal; Reactive Lymphocytes 9 % (0-10)
[2022-05-28 13:06] LABS: ALT (SGPT) 18 U/L (8-55); AST (SGOT) 12 U/L (5-34); Albumin 4.2 g/dL (3.4-4.8); Alkaline Phosphatase 102 U/L (40-110); Anion Gap 16 mmol/L (10-20); BUN (Urea Nitrogen) 10 mg/dL (9.8-20.1); Bilirubin, Total 1.4 mg/dL (0.2-1.2); Calc. Creatinine Clearance 0 mL/min (70-130); Calcium 10.4 mg/dL (7.8-10.44); Carbon Dioxide 27 mmol/L (23-31); Chloride 98 mmol/L (98-107); Estimated GFR 56; Globulin 3.1 g/dL (2.4-3.5); Glucose 286 mg/dL (80-115); Lipase 21 U/L (8-78); Potassium 3.8 mmol/L (3.5-5.1); Protein, Total 7.3 g/dL (5.8-8.1); Sodium 137 mmol/L (136-145)
[2022-05-28 15:46] LABS: Bilirubin Negative (Negative); Blood, Urine Negative (Negative); Clarity Clear (Clear); Glucose, Urine (Dipstick) 50 mg/dL (Negative); Ketone, Urine Negative (Negative); Leukocyte Negative Leu/uL (Negative); Nitrite Negative (Negative); Protein, Urine (Dipstick) Negative (Neg-Trace); Specific Gravity, Urine 1.017 (1.002-1.036); Urobilinogen Normal mg/dL (Less than 2)
[2022-05-28 18:30] LABS: Troponin I Less than 0.010 ng/mL (< 0.028)
[2022-05-28] MEDS ORDERED: Ondansetron PF 4 MG/2 ML Vial IVP PRN (18:45)
[2022-05-28] MEDS ORDERED: Acetaminophen 325 MG TAB PO PRN (18:45)
[2022-05-28] MEDS ORDERED: Ondansetron ODT 4 MG TAB SL PRN (18:45)
[2022-05-28 18:52] VITALS: BMI 22.1
[2022-05-28] MEDS ORDERED: Bisacodyl 5 MG TAB PO PRN (19:13)
[2022-05-28] MEDS ORDERED: Senokot S 8.6-50 MG TAB PO PRN (19:13)
[2022-05-28] MEDS ORDERED: HumaLOG 300 UNITS/3 ML VIAL SC PRN ×2 (19:13)
[2022-05-28] MEDS ORDERED: Dextrose 5% in Water 1,000 ML IV PRN (19:13)
[2022-05-28] MEDS ORDERED: Dextrose 50% Abboject 50 ML SYRINGE SLOW IVP PRN (19:13)
[2022-05-28] MEDS ORDERED: HYDROcodone/Acetaminophen 5/325 mg Tablet PO PRN (19:13)
[2022-05-28 20:51] LABS: Hemoglobin A1c 8.8 % (4.0-6.0)
[2022-05-28] MEDS ORDERED: Atorvastatin Calcium 40 MG TAB PO SCH (21:00)
[2022-05-28 21:04] LABS: Troponin I Less than 0.010 ng/mL (< 0.028)
[2022-05-29 05:02] LABS: Band 2 % (5-11); Hemoglobin 13.3 g/dL (12.0-16.0); Lymphocytes 39 % (21-51); MDiff Complete? YES; Mean Corpuscular HGB CONC 32.4 g/dL (32.0-36.0); Mean Corpuscular Hemoglobin 30.5 pg (27.0-31.0); Mean Corpuscular Volume 94.1 fL (78.0-98.0); Mean Platelet Volume 8.2 fL (7.4-10.4); Monocytes 14 % (0-10); Neutrophil 45 % (42-75); Platelet Count 307 thou/uL (130-400); Platelet Morphology Comment Appears Adequate; RBC Distribution Width 12.1 % (11.5-14.5); RBC Morphology Normal; Red Blood Cell (RBC) Count 4.38 mill/uL (4.20-5.40); White Blood Cell (WBC) Count 9.4 thou/uL (4.8-10.8)
[2022-05-29 05:15] LABS: ALT (SGPT) 16 U/L (8-55); AST (SGOT) 12 U/L (5-34); Albumin 3.8 g/dL (3.4-4.8); Alkaline Phosphatase 93 U/L (40-110); Anion Gap 14 mmol/L (10-20); BUN (Urea Nitrogen) 12 mg/dL (9.8-20.1); Bilirubin, Total 1.6 mg/dL (0.2-1.2); Calc. Creatinine Clearance 60 mL/min (70-130); Calcium 10.1 mg/dL (7.8-10.44); Carbon Dioxide 27 mmol/L (23-31); Cardiac Risk 3.8 (Less than 4.5); Chloride 99 mmol/L (98-107); Cholesterol 120 mg/dl (< 200 Desired); Estimated GFR 66; Globulin 3.1 g/dL (2.4-3.5); Glucose 232 mg/dL (80-115); HDL Cholesterol 32 mg/dL (>60 Neg Risk); LDL Cholesterol, Calculated 65 mg/dL; Protein, Total 6.9 g/dL (5.8-8.1); Sodium 136 mmol/L (136-145); Triglycerides 113 mg/dL (Less than 150)
[2022-05-29] MEDS ORDERED: ADENOSINE 60 MG/20 ML VIAL ONE (08:44)
[2022-05-29] MEDS ORDERED: Hydrochlorothiazide 25 MG TAB PO SCH (09:00)
[2022-05-29] MEDS ORDERED: Loratadine 10 MG TAB PO SCH (09:00)
[2022-05-29] MEDS ORDERED: Enoxaparin Sodium 30 MG/0.3 ML SYRINGE SC SCH (09:00)
[2022-05-29] MEDS ORDERED: Stress 600 With Zinc 1 TAB PO SCH (09:00)
[2022-05-29] MEDS ORDERED: Cholecalciferol 1,000 UNITS (25 MCG) TAB PO SCH (09:00)
[2022-05-29] MEDS ORDERED: Acetaminophen 325 MG TAB PO PRN (11:33)
[2022-05-29 11:55] VITALS: BP 134/72; TEMP 97.9
== END 2022-05-29 14:04 | disposition home or self-care (01) ==
LOC: ERS 12:06 → 2SW 18:42
PROVIDERS: ADMIT Hospitalist; ATTEND Hospitalist
DX: U07.1 COVID-19 (principal); R07.89 Other chest pain; R00.2 Palpitations; E11.9 Type 2 diabetes mellitus without complications; I10 Essential (primary) hypertension; E78.5 Hyperlipidemia, unspecified; Z79.84 Long term (current) use of oral hypoglycemic drugs; Z79.899 Other long term (current) drug therapy; Z88.5 Allergy status to narcotic agent; Z88.8 Allergy status to other drugs, medicaments and biological substances
CPT/HCPCS: 71045; 78452; 80053 ×2; 80061; 81003; 82962 ×2; 83036; 83690; 84484 ×2; 85025 ×2; 93005; 93017; 94760 ×2; 99285; A9500; U0003; U0005; 36415; 36416; 96372; G0378; J0153; J1650

== ENCOUNTER 2022-10-09 14:38 | Emergency (ER) | payer MEDICARE, BC ==
[2022-10-09] MEDS ORDERED: Gabapentin 300 MG CAP PO SCH (15:45)
== END 2022-10-09 16:52 | disposition home or self-care (01) ==
LOC: ERS 14:38
DX: E11.40 Type 2 diabetes mellitus with diabetic neuropathy, unspecified (principal); E78.5 Hyperlipidemia, unspecified; I10 Essential (primary) hypertension; Z79.899 Other long term (current) drug therapy; Z79.84 Long term (current) use of oral hypoglycemic drugs

== ENCOUNTER 2023-02-11 13:37 | Emergency (ER) | payer MEDICARE, BC | END 2023-02-11 16:10 | disposition home or self-care (01) | LOC: ERS 13:37 | DX: R07.0 Pain in throat (principal); T65.891A Toxic effect of other specified substances, accidental (unintentional), initial encounter; E11.9 Type 2 diabetes mellitus without complications; E78.5 Hyperlipidemia, unspecified; Z79.899 Other long term (current) drug therapy; Z79.84 Long term (current) use of oral hypoglycemic drugs | CPT/HCPCS: 93005 ==